=== PATIENT | male | born 1995 | race Caucasian/White ===

== ENCOUNTER 2024-09-26 13:07 | Outpatient (AMB) | payer OTHER, SELFPAY ==
--- NOTE | 2024-09-26 13:09 | MHC.PC.OV ---
Vital Signs 09/26/24 13:14 Height 5 ft 9.25 in Weight 163 lb BMI 23.9 BP 102/60 Blood Pressure Location Rt brachial Pulse 90 Pulse Source Pulse Oximeter Temp 98.1 F Pulse Oximetry (%) 98 Intake Visit Reasons: annual physical Intake Note: no issues Organizational Development Consultant Required: No Allergies No Known Allergies Allergy (Verified 09/26/24 13:29) Medication List - Last Reconciled 09/26/24 by Kelley Camacho PA-C escitalopram oxalate 20 mg PO DAILY PFSH Medical History Depression Autism Anxiety Annual physical exam Tinnitus Surgical History H/O toe surgery Family History Paternal Grandfather Colon cancer Social History Housing: House Patient Tobacco Use Status: Never used Tobacco e-Cigarette/Vaping Use: Never Used Second Hand Smoke Exposure: Yes (as a child was in car with grand parent's) service: No Current occupational status: employed 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 1. Little interest or pleasure in doing things: more than half the days 2. Feeling down, depressed, or hopeless: more than half the days 3. Trouble falling or staying asleep, or sleeping too much: several days 4. Feeling tired or having little energy: more than half the days 5. Poor appetite or overeating: not at all 6. Feeling bad about yourself - or that you are a failure or have let yourself or your family down: nearly every day 7. Trouble concentrating on things, such as reading the newspaper or watching television: nearly every day 8. Moving or speaking so slowly that other people could have noticed. Or the opposite - being so fidgety or restless that you have been moving around a lot more than usual: several days 9. Thoughts that you would be better off or of hurting yourself in some way: more than half the days Total score: 16 Depression Screening Interpretation: Positive Depression Screening Follow-up: Existing condition and In treatment Depression Screening Done: Yes 68556 - PHQ-9 Billing: Yes Source: Developed by Drs. Nikolas Ordonez, Lorena Davis, Hitesh Goodwin and colleagues, with an educational iman from [employer]. Thrive Questionnaire Date Thrive assessed: 09/26/24 I am a: Patient What is your living situation today?: I have a steady place to live Within the past 12 months, did the food you bought not last and you didn't have the money to get more?: Never true Within the past 12 months, did you worry whether your food would run out before you got money to buy more?: Never true Do you have trouble paying for medicines?: No Do you have trouble getting transportation to medical appointments?: No Do you have trouble paying your heating and electricity bill?: No Do you have trouble taking care of your child, family member or friend?: No Do you have trouble with day-to-day activities such as bathing, preparing meals, shopping, managing finances, etc.?: No Are you currently unemployed and looking for a job?: No Are you interested in more education?: I choose not to answer this question Currently or been in a relationship where the following occur: No concerns reported THRIVE Score: 0 AUDIT C Alcohol Use Questionnaire (AUDIT-C) 1. How often do you have a drink containing alcohol?: Never 3. How often do you have six or more drinks on one occasion?: Never Total Score: 0 Score Reviewed/Action Taken: No JOHNIE-7 AMB Questionnaire JOHNIE-7 Feeling nervous, anxious, or on edge: 3 = Nearly every day Not being able to stop or control worryin = Nearly every day Worrying too much about different things: 3 = Nearly every day Trouble relaxin = More than half the days Being so restless that it is hard to sit still: 2 = More than half the days Becoming easily annoyed or irritable: 2 = More than half the days Feeling afraid as if something awful might happen: 3 = Nearly every day Total JOHNIE-7 score (0-4 normal; 5-9 mild; 10-14 moderate; 15-21 severe): 18 Source: Developed by Drs. Nikolas Ordonez, Lorena Davis, Hitesh Goodwin and colleagues, with an educational iman from [employer]. JOHNIE-7 Assessment Billing JOHNIE-7 Assessment Tool: JOHNIE-7 Assessment 64588 Physical exam (Primary Care) Vital Signs: Last Vital Signs Temp 98.1 F 09/26/24 13:14 Pulse 90 09/26/24 13:14 BP 102/60 09/26/24 13:14 Pulse Ox 98 09/26/24 13:14 Care Plan Goal for BP management: <130/80 BMI result Body Mass Index 23.9 normal bmi Tobacco/Smoking Status: Tobacco use Status Patient Tobacco Use Status Never used Tobacco 09/26/24 13:37 e-Cigarette/Vaping Use Never Used 09/26/24 13:37 PHQ-9: PHQ-9 Score PHQ-9: Total score 16 09/26/24 14:03 Depression Screening Interpretation: Positive Depression Screening Follow-up: Existing condition and In treatment Thrive Assessment: Date of Thrive Assessment Date Thrive assessed 09/26/24 09/26/24 13:37 Currently or been in a relationship where the following occur: No concerns reported Coding Level of Care Code New Pt Prev Care 18-39yr([id number] Diagnoses Annual physical exam Z00.00 Autism F84.0 Depression F32.A Anxiety F41.9 Tinnitus H93.19 Additional Codes JOHNIE-7 Assessment Billing - JOHNIE-7 Assessment Tool: JOHNIE-7 Assessment 93980 ([id number]) PHQ-9 - 72939 - PHQ-9 Billing: Yes ([id number]) Assessment & Plan Assessment & Plan (1) Annual physical exam: Code(s): Z00.00 - Encounter for general adult medical examination without abnormal findings Category: Medical (2) Autism: Code(s): F84.0 - Autistic disorder Category: Medical Plan: With history of autism. Condition is chronic and stable continue to monitor. (3) Depression: Code(s): F32.A - Depression, unspecified Category: Medical Plan: Patient with anxiety, depression being followed by FRANCINE Goel. Patient is currently on escitalopram 20 mg daily taking as prescribed. Denies any SI or HI at this time. Deny any self-harm in over a year and a half or thoughts of self-harm. Denies any drug or alcohol usage. Patient to continue escitalopram. I offered the patient referral to psychiatrist although at this time he would like to stay with his therapist. Condition is chronic and stable continue to monitor. (4) Anxiety: Code(s): F41.9 - Anxiety disorder, unspecified Category: Medical Plan: Patient with anxiety, depression being followed by FRANCINE Goel. Patient is currently on escitalopram 20 mg daily taking as prescribed. Denies any SI or HI at this time. Deny any self-harm in over a year and a half or thoughts of self-harm. Denies any drug or alcohol usage. Patient to continue escitalopram. I offered the patient referral to psychiatrist although at this time he would like to stay with his therapist. Condition is chronic and stable continue to monitor. (5) Tinnitus: Code(s): H93.19 - Tinnitus, unspecified ear Category: Medical Plan: Condition is chronic and stable continue to monitor. Plan Plan Patient was informed and verbally consented to the use of an ambient scribe for clinic note documentation during this visit. 1. Tinnitus No immediate specialist evaluation required; symptom management with protective strategies is underway. 2. History Of Big Toe Toenail Removal No active concerns, symptoms addressed with prior minor surgical removal. 3. Autism Spectrum Disorder Sustained observation, considering ongoing stable condition and patient report. 4. Major Depressive Disorder Continue with current medication therapy of escitalopram 20 mg daily, as it remains effective for symptom control. Continuous support with the current therapist is encouraged with no immediate plans for alteration. 5. Generalized Anxiety Disorder Maintain existing treatment strategies with escitalopram and therapy. Acknowledged possible referral to Carol Olivera should future diagnostic assessments be necessary per patient's choices. Discussion Notes I discussed with the patient the continuation of escitalopram for depression and anxiety management, emphasizing the positive outcome he has reported. We deliberated on the option of contacting Carol Olivera, a psychiatrist known for thorough diagnostic evaluations, should the patient wish to explore undiagnosed symptoms in the future. Tinnitus does not currently warrant ENT consultation but is managed effectively by the patient. We deferred routine laboratory work due to the patient's significant needle phobia and discussed potential gastrointestinal cancer screenings following discussions with his family about past cancer diagnoses. The patient expressed understanding and agreement with the current management plan and declined further interventions at this time. Medications: New escitalopram oxalate 20 mg PO DAILY 90 tabs 1RF Patient Instructions: Patient Instructions - Continue taking escitalopram 20 mg daily as prescribed. - Engage in regular therapy sessions with Aneesh Hernandez for anxiety and depression support. - Employ ear protection during concerts to manage tinnitus effectively. - Follow up on family history of colon cancer and plan screenings as appropriate. - Report any new or worsening symptoms promptly. - Return for annual physical examination in one year unless otherwise needed. - Contact the office if prescription refills are required before the next scheduled appointment. Scribe Plan - Not visible on output: History of Present Illness The patient is a 29-year-old male presenting for an annual physical examination and the establishment of new primary care. His medical history includes Autism Spectrum Disorder, Generalized Anxiety Disorder, and Major Depressive Disorder, for which he is currently taking escitalopram 20 mg daily. The patient reports ongoing therapeutic support with a local therapist named Aneesh Hernandez but does not have a psychiatrist. He denies additional medications or medical consultations. The patient has unspecified tinnitus for which protective measures during concerts are taken. He reports longstanding anxiety and depression symptoms, such as significantly low mood and energy levels, difficulties concentrating, and normal appetite. His surgical history includes minor big toe toenail removal. No further acute medical or surgical history was noted, and he reported neither alcohol nor drug use. Needle phobia is present, which led to deferment of bloodwork during this visit. Family history includes colon cancer from paternal lineage, prompting a future commitment to necessary screenings. 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 - Housing: Lives with father and stepmother in a house owned by the father. - Education: No current interest in pursuing further education. - Family Status: Single, living with family members for 15 years, never been in a relationship. - Substance Use: Denies smoking, alcohol use, or drugs; reported exposure to secondhand smoke during childhood. - Activities: Participates in concerts, uses hearing protection, denies other hobbies mentioned. Review of Systems - Psychiatric: Reports nearly daily anxiety and depression symptoms, frequent trouble concentrating, feelings of worthlessness, and anticipatory worry about future events. - Sleep: Reports intermittent trouble with initial sleep onset. - Ear, Nose, Throat: Reports tinnitus without requiring evaluation, hearing intact. Physical Exam Appearance: Alert. Oriented X3. No acute distress. Head: Normal external exam. Normocephalic. Atraumatic. Eyes: Pupils are equal, round, and reactive to light. Extraocular movements intact. Conjunctiva and sclera normal. Eyelids normal. Ears: External auditory canal normal. Tympanic membranes normal. Reports tinnitus. Throat: Pharynx normal. Uvula midline. Moist mucous membranes. Neck: Normal inspection. Neck supple. Full range of motion. No adenopathy. Thyroid Normal. No meningeal signs. No neck mass noted. Cardiovascular: Normal heart rate and rhythm. Heart sound normal. No murmurs noted. Pulses normal throughout. Respiratory: No respiratory distress. Painless inspiration. Breath sounds normal. No wheezes/rales/rhonchi noted. Chest nontender. No accessory muscle usage noted or decreased air movement noted. Abdomen: Soft and nontender. Bowel sounds normal in all 4 quadrants. No distention noted. No organomegaly noted. No visible injury noted. Back: No costovertebral angle tenderness. Full range of motion noted. Skin: Skin warm and dry. Normal skin color. Normal skin turgor. No rashes/lesions/lacerations noted. Extremities: No lower extremity edema. Extremities exhibit normal range of motion. Extremities nontender. Neuro: Oriented X 3. No motor deficit. No sensory deficit. Reflexes normal. Reports anxiety, autism, and depression.
[2024-09-26 13:14] VITALS: BP 102/60; PULSE 90; TEMP 36.7; O2SAT 98; BMI 23.9
== END 2024-09-26 13:43 | disposition home or self-care (01) ==
LOC: HO.HMCSH 13:07
PROVIDERS: PCP Internal Medicine; Visit Provider Physician Assistant Medical
DX: Z00.00 Encounter for general adult medical examination without abnormal findings (principal); F84.0 Autistic disorder; F32.A Depression, unspecified; F41.9 Anxiety disorder, unspecified; H93.19 Tinnitus, unspecified ear

== ENCOUNTER → 2024-09-26 13:07 | Outpatient (BNVA) | payer OTHER, SELFPAY | PROVIDERS: PCP Internal Medicine; Visit Provider Physician Assistant Medical | DX: Z00.00 Encounter for general adult medical examination without abnormal findings (principal); F84.0 Autistic disorder; F32.A Depression, unspecified; F41.1 Generalized anxiety disorder; H93.19 Tinnitus, unspecified ear; Z79.899 Other long term (current) drug therapy | CPT/HCPCS: 96127 ==